=== PATIENT | female | born 1950 | race Caucasian/White ===

== ENCOUNTER 2017-01-05 13:29 | Emergency (ER) | payer BC, OTHER ==
[2017-01-05 14:53] LABS: EOSINOPHIL (%) 0.6 % (0-5); EOSINOPHIL COUNT 0.1 K/uL (0-0.3); HEMATOCRIT 37.5 % (36.0-46.0); IMMATURE GRANULOCYTE (%) 0.7 % (0.0-0.7); IMMATURE GRANULOCYTE COUNT 0.1 K/uL; INSTRUMENT ABS NEUTROPHIL CT 9.4 K/uL; LYMPHOCYTE COUNT 1.6 K/uL (1.0-2.8); MCH 32.3 PG (29.0-34.0); MCHC 33.6 G/DL (30.0-36.0); MCV 96.2 FL (83-99); MEAN PLAT.VOLUME 10.1 uM^3 (9.5-12.4); MONOCYTE (%) 5.8 % (3-12); MONOCYTE COUNT 0.7 K/uL (0-0.8); NEUTROPHIL (%) 79.1 % (45-76); NEUTROPHIL COUNT 9.4 K/uL (1.8-6.4); PLATELET COUNT 173 K/uL (156-360); RBC DIS.WIDTH-CV 11.4 % (11.8-14.6); RBC DIS.WIDTH-SD 40.3 % (39-53); WHITE BLOOD COUNT 11.8 K/uL (4.1-10.2)
[2017-01-05 14:58] LABS: INTER. NORMALIZED RATIO 1.1; PROTHROMBIN TIME 12.5 SEC (10.2-12.9)
[2017-01-05 15:04] LABS: AMYLASE 54 IU/L (1-118); CHLORIDE 107 mEq/L (99-109); POTASSIUM 3.8 mEq/L (3.7-5.4); SODIUM 143 mEq/L (136-147)
[2017-01-05 15:06] LABS: GLUCOSE 112 mg/dL (70-99)
[2017-01-05 15:08] LABS: ANION GAP 9 MEQ/L (2-14)
[2017-01-05 15:09] LABS: SERUM ETHYL ALCOHOL < 10 mg/dL
[2017-01-05 15:11] LABS: UREA NITROGEN (BUN) 13 mg/dL (9-23)
[2017-01-05 15:13] LABS: GFR ESTIMATE (CALCULATED) > 59 mL/min/; LIPASE 24 U/L (1.0-51.0)
== END 2017-01-05 16:59 | disposition short-term general hospital (02) ==
LOC: TRA 13:29
PROVIDERS: Emergency Medicine
DX: S72.342A Displaced spiral fracture of shaft of left femur, initial encounter for closed fracture (principal); V17.4XXA Pedal cycle driver injured in collision with fixed or stationary object in traffic accident, initial encounter; Y93.55 Activity, bike riding; I10 Essential (primary) hypertension; Z79.82 Long term (current) use of aspirin; Z86.79 Personal history of other diseases of the circulatory system; Z23 Encounter for immunization
CPT/HCPCS: 70450; 73502; 73552; 80048; 81003; 82150; 83690; 85025; 85610; 86850; 86900; 86901; 93005; 99281; 99285; G0480; J2270; J2405; J3010